=== PATIENT | female | born 1965 | race Asian ===

== ENCOUNTER 2020-08-04 18:59 | Emergency (ER) | payer OTHER ==
[2020-08-04 19:30] VITALS: BP 156/89; PULSE 83; TEMP 98.3; BMI 32.9
[2020-08-04] MEDS ORDERED: ONDANSETRON 4 MG/2 ML VIAL IVPUSH ONE (20:00)
[2020-08-04] MEDS ORDERED: SODIUM CHLORIDE 0.9% 500 ML INFUS.BAG IV ONE (20:26)
[2020-08-04] MEDS ORDERED: ONDANSETRON 4 MG/2 ML VIAL ONE (20:31)
[2020-08-04 21:21] LABS: BASO % 0.8 % (0-2.0); EOS % 1.9 % (0-4.5); HEMATOCRIT 40.5 % (32.4-45.2); HEMOGLOBIN 13.3 GM/dL (10.7-15.3); MCH 25.4 pg (25.7-33.7); MCHC 32.9 g/dl (32.0-36.0); MEAN CELL VOLUME 77.2 fl (80-96); MEAN PLT VOLUME 8.4 fl (7.5-11.1); MONO % 6.7 % (3.8-10.2); NEUT % 73.6 % (42.8-82.8); PLATELET COUNT 415 K/MM3 (134-434); RBC 5.25 M/mm3 (3.60-5.2); RDW 13.7 % (11.6-15.6); WHITE BLOOD COUNT 15.4 K/mm3 (4.0-10.0)
[2020-08-04 21:29] LABS: INR 1.06 (0.83-1.09)
[2020-08-04 21:45] LABS: CHLORIDE 91 mmol/L (98-107); POTASSIUM 4.9 mmol/L (3.5-5.1); SODIUM 128 mmol/L (136-145)
[2020-08-04 21:47] LABS: ALBUMIN 4.1 g/dl (3.4-5.0); CALCIUM 9.7 mg/dL (8.5-10.1)
[2020-08-04 21:48] LABS: ANION GAP 8 MMOL/L (8-16); BLOOD UREA NITROGEN 14.1 mg/dL (7-18); CO2 29 mmol/L (21-32); GLUCOSE,RANDOM 106 mg/dL (74-106); LIPASE 96 U/L (73-393)
[2020-08-04 21:50] LABS: SGPT/ALT 16 U/L (13-61)
[2020-08-04 21:51] LABS: CREATININE 0.8 mg/dL (0.55-1.3); SGOT/AST 14 U/L (15-37)
[2020-08-04 21:52] LABS: BILIRUBIN,TOTAL 0.2 mg/dL (0.2-1); TOT PROT 9.1 g/dl (6.4-8.2)
[2020-08-04 21:53] LABS: ALK PHOS 136 U/L (45-117)
[2020-08-04 22:57] LABS: MAGNESIUM 2.2 mg/dL (1.8-2.4)
== END 2020-08-05 00:31 | disposition home or self-care (01) ==
LOC: JER 18:59
PROC: 3E033NZ Introduction of Analgesics, Hypnotics, Sedatives into Peripheral Vein, Percutaneous Approach (ICD-10-PCS; principal; 2020-08-04)
DX: R11.10 Vomiting, unspecified (principal); R19.7 Diarrhea, unspecified
CPT/HCPCS: 36415; 70450-TC; 71045-TC-FY; 80053; 82550; 83690; 83735; 84100; 84484; 84702; 85025; 85610; 85730; 93005; 93010; 99284-25

== ENCOUNTER 2022-03-24 09:43 | Emergency (ER) | payer OTHER ==
[2022-03-24 10:07] VITALS: BP 152/76; PULSE 88; RESP 18; TEMP 98.9; BMI 23.4
[2022-03-24] MEDS ORDERED: KETOROLAC TROMETHAMINE 30 MG/1 ML VIAL IM ONE (10:26)
[2022-03-24] MEDS ORDERED: KETOROLAC TROMETHAMINE 30 MG/1 ML VIAL ONE (10:35)
== END 2022-03-24 12:55 | disposition home or self-care (01) ==
LOC: JER 09:43 → JERFT 09:43
PROC: 3E0233Z Introduction of Anti-inflammatory into Muscle, Percutaneous Approach (ICD-10-PCS; principal; 2022-03-24)
DX: N61.1 Abscess of the breast and nipple (principal)
CPT/HCPCS: 99283-25

== ENCOUNTER 2024-02-02 00:33 | Emergency (ER) | payer OTHER ==
[2024-02-02 00:50] VITALS: TEMP 98.5; BMI 21.8
[2024-02-02 02:07] LABS: BASO % 0.7 % (0-2.0); EOS % 4.7 % (0-4.5); HEMATOCRIT 37.2 % (32.4-45.2); HEMOGLOBIN 12.2 GM/dL (10.7-15.3); LYMPH % 45.3 % (8-40); MCH 26.2 pg (25.7-33.7); MCHC 32.9 g/dl (32.0-36.0); MEAN CELL VOLUME 79.7 fl (80-96); MEAN PLT VOLUME 7.8 fl (7.5-11.1); MONO % 9.9 % (3.8-10.2); NEUT % 39.4 % (42.8-82.8); PLATELET COUNT 248 10^3/uL (134-434); RBC 4.66 M/mm3 (3.60-5.2); RDW 13.9 % (11.6-15.6); WHITE BLOOD COUNT 5.6 K/mm3 (4.0-10.0)
[2024-02-02] MEDS: SODIUM CHLORIDE 0.9% 500 ML INFUS.BAG IV ONE (02:12)
[2024-02-02] MEDS ORDERED: NALOXONE (NYS OPIOID OVERDOSE PROGRAM) 4 MG/0.1 ML SPRAY NS ONE (02:18)
[2024-02-02 02:19] LABS: INR 0.93 (0.83-1.09); PROTHROMBIN TIME (PATIENT) 10.5 SEC (9.7-13.0)
[2024-02-02 02:21] LABS: ACTIVATED PTT 31.8 SECONDS (25.2-36.5)
[2024-02-02 02:24] LABS: CHLORIDE 105 mmol/L (98-107); SODIUM 140 mmol/L (136-145)
[2024-02-02] MEDS ORDERED: NALOXONE HCL 0.4 MG/ML VIAL ONE (02:24)
[2024-02-02 02:26] LABS: CALCIUM 9.1 mg/dL (8.5-10.1)
[2024-02-02 02:27] LABS: ALBUMIN 3.6 g/dl (3.4-5.0); ANION GAP 7 mmol/L (4-13); BLOOD UREA NITROGEN 15.7 mg/dL (7-18); CO2 29 mmol/L (21-32); GLUCOSE,RANDOM 94 mg/dL (74-106); MAGNESIUM 2.4 mg/dL (1.8-2.4)
[2024-02-02 02:29] LABS: SGPT/ALT 21 U/L (13-61)
[2024-02-02 02:30] LABS: BILIRUBIN,TOTAL 0.6 mg/dL (0.2-1); SGOT/AST 13 U/L (15-37); TOT PROT 7.6 g/dl (6.4-8.2)
[2024-02-02 02:32] LABS: ALK PHOS 74 U/L (45-117)
[2024-02-02] MEDS: NALOXONE HCL 0.4 MG/ML VIAL IVPUSH ONE (02:32)
[2024-02-02 03:58] VITALS: BP 117/84; PULSE 77; RESP 18
[2024-02-02 04:29] LABS: METHADONE, UR NEGATIVE (NEGATIVE); URINE AMPHETAMINES NEGATIVE (NEGATIVE); URINE BARBITURATES NEGATIVE (NEGATIVE); URINE BENZODIAZEPINES NEGATIVE (NEGATIVE)
[2024-02-02 04:30] LABS: OPIATES, URI NEGATIVE (NEGATIVE); PHENCYCLIDINE,URINE NEGATIVE (NEGATIVE)
[2024-02-02 04:32] LABS: COCAINE, UR POSITIVE (NEGATIVE)
[2024-02-02 05:19] LABS: EPI CELLS 15 /uL (0-25.1); HYALINE CASTS 0 /uL (0-3.1); PH,URINE 7.5 (5.0-8.0); URINE APPEARANCE CLEAR; URINE BACTERIA 294 /uL (0-1359); URINE BILIRUBIN NEGATIVE (NEGATIVE); URINE COLOR YELLOW; URINE GLUCOSE (UA) NEGATIVE (NEGATIVE); URINE KETONE NEGATIVE (NEGATIVE); URINE LEUK ESTERASE 1+ (NEGATIVE); URINE NITRITE NEGATIVE (NEGATIVE); URINE PROTEIN NEGATIVE (NEGATIVE); URINE RBC 3 /uL (0-23.9); URINE UROBILINOGEN 0.2 mg/dL (0.2-1.0); URINE WBC 26 /uL (0-25.8)
== END 2024-02-02 07:40 | disposition home or self-care (01) ==
LOC: JER 00:33
PROC: 3E033NZ Introduction of Analgesics, Hypnotics, Sedatives into Peripheral Vein, Percutaneous Approach (ICD-10-PCS; principal; 2024-02-02)
DX: R41.82 Altered mental status, unspecified (principal); F14.921 Cocaine use, unspecified with intoxication delirium; W18.30XA Fall on same level, unspecified, initial encounter; Z20.822 Contact with and (suspected) exposure to COVID-19
CPT/HCPCS: 0241U-QW; 36415; 70450-TC; 71045-TC-FY; 80053; 80307; 81003; 82962; 83690; 83735; 84484; 85025; 85610; 85730; 87086; 93005; 93010; 99285-25

== ENCOUNTER 2024-05-31 22:13 | Emergency (ER) | payer OTHER ==
[2024-05-31 22:20] VITALS: BP 132/80; PULSE 65; RESP 18; TEMP 97.6; BMI 22.6
[2024-06-01 00:24] LABS: EPI CELLS >36 /uL (0-25.1); HEMATOCRIT 39.6 % (32.4-45.2); HEMOGLOBIN 12.6 GM/dL (10.7-15.3); HYALINE CASTS 1 /uL (0-3.1); MCH 25.6 pg (25.7-33.7); MCHC 31.8 g/dl (32.0-36.0); MEAN CELL VOLUME 80.6 fl (80-96); MEAN PLT VOLUME 8.4 fl (7.5-11.1); PLATELET COUNT 313 10^3/uL (134-434); RBC 4.91 M/mm3 (3.60-5.2); RDW 13.7 % (11.6-15.6); URINE APPEARANCE CLEAR; URINE BACTERIA 993 /uL (0-1359); URINE BILIRUBIN NEGATIVE (NEGATIVE); URINE COLOR YELLOW; URINE GLUCOSE (UA) NEGATIVE (NEGATIVE); URINE KETONE NEGATIVE (NEGATIVE); URINE LEUK ESTERASE TRACE (NEGATIVE); URINE NITRITE NEGATIVE (NEGATIVE); URINE PROTEIN NEGATIVE (NEGATIVE); URINE RBC 6 /uL (0-23.9); URINE UROBILINOGEN 0.2 mg/dL (0.2-1.0); URINE WBC 23 /uL (0-25.8); WHITE BLOOD COUNT 7.3 K/mm3 (4.0-10.0)
[2024-06-01 00:32] LABS: POTASSIUM 3.8 mmol/L (3.5-5.1)
[2024-06-01 00:36] LABS: ALBUMIN 3.8 g/dl (3.4-5.0); BLOOD UREA NITROGEN 13.1 mg/dL (7-18); CALCIUM 9.8 mg/dL (8.5-10.1)
[2024-06-01] MEDS: SODIUM CHLORIDE 1,000 ML IV STA (00:38)
[2024-06-01 00:39] LABS: CREATININE 0.8 mg/dL (0.55-1.3)
[2024-06-01 00:41] LABS: BILIRUBIN,TOTAL 0.5 mg/dL (0.2-1); TOT PROT 8.1 g/dl (6.4-8.2)
[2024-06-01 01:34] LABS: METHADONE, UR NEGATIVE (NEGATIVE); OPIATES, URI NEGATIVE (NEGATIVE); URINE AMPHETAMINES NEGATIVE (NEGATIVE); URINE BENZODIAZEPINES NEGATIVE (NEGATIVE)
[2024-06-01 01:35] LABS: PHENCYCLIDINE,URINE NEGATIVE (NEGATIVE)
[2024-06-01 01:56] LABS: COCAINE, UR POSITIVE (NEGATIVE); URINE BARBITURATES NEGATIVE (NEGATIVE)
== END 2024-06-01 02:02 | disposition home or self-care (01) ==
LOC: JER 22:13
DX: R10.9 Unspecified abdominal pain (principal); F14.10 Cocaine abuse, uncomplicated; F32.A Depression, unspecified; F41.9 Anxiety disorder, unspecified
CPT/HCPCS: 36415; 80053; 80307; 81003; 84484; 85027; 93005; 93010; 99284-25